=== PATIENT | female | born 1970 | race Caucasian/White ===

== ENCOUNTER 2016-05-30 06:14 | Emergency (ER) | payer OTHER ==
[2016-05-30] MEDS ORDERED: CYCLOBENZAPRINE 10 MG TAB ONE (07:21)
[2016-05-30] MEDS ORDERED: DILAUDID 1 MG/ML AMP ONE ×2 (07:21→08:50)
[2016-05-30] MEDS ORDERED: DIAZEPAM 5 MG TAB ONE (08:50)
== END 2016-05-30 08:39 | disposition home or self-care (01) ==
LOC: ER 06:14
DX: S39.012A Strain of muscle, fascia and tendon of lower back, initial encounter (principal); X50.1XXA Overexertion from prolonged static or awkward postures, initial encounter; Y93.89 Activity, other specified; Y92.098 Other place in other non-institutional residence as the place of occurrence of the external cause; M54.16 Radiculopathy, lumbar region; M54.32 Sciatica, left side; M54.31 Sciatica, right side; Z79.899 Other long term (current) drug therapy; F17.210 Nicotine dependence, cigarettes, uncomplicated
CPT/HCPCS: 72100; 96372